=== PATIENT | male | born 1960 | race Caucasian/White ===

== ENCOUNTER 2023-06-09 10:18 | Emergency (ER) | payer MEDICARE, MEDICAID ==
[~2023-06-09] VITALS: Ht 170.2 cm; Wt 72.6 kg
[2023-06-09 10:33] VITALS: O2SAT 100
[2023-06-09] MEDS ORDERED: IBUP-2030 MT (10:38)
[2023-06-09] MEDS ORDERED: AMOX1TAB15 MT (10:38)
[2023-06-09 10:41] VITALS: BP 135/82; PULSE 60; RESP 16; TEMP 98.4
== END 2023-06-09 10:54 | disposition home or self-care (01) ==
LOC: ER 10:28
DX: K08.89 Other specified disorders of teeth and supporting structures (principal); E78.00 Pure hypercholesterolemia, unspecified
CPT/HCPCS: 99281; 99283